=== PATIENT | female | born 1970 | race Caucasian/White ===

== ENCOUNTER 2016-10-19 03:06 | Observation (INO) | payer OTHER ==
[~2016-10-19] VITALS: Ht 165.1 cm; Wt 166.7 kg
--- NOTE | 2016-10-19 06:48 | DIAGNOSTIC IMAGING REPORT ---
PROCEDURE: XR CHEST 1 VIEW INDICATION: RECENT DX OF PE AT PROV TECHNIQUE: Portable AP view 03:31 a.m. COMPARISON: Chest x-ray 07/20/2015 FINDINGS: Lungs are clear. Heart and mediastinum are normal. Thorax is normal. No significant interval change. IMPRESSION: 1. Negative chest.
--- NOTE | 2016-10-19 06:54 | ED CLINICAL REPORT ---
Clinical Report - Physicians/Mid Levels [facility] [address] [place] [address] 10/19/2016 3:08 Patient: CORI SU Arrived- By private vehicle. Historian- patient. HISTORY OF PRESENT ILLNESS Chief Complaint: DYSPNEA. This started past several days and is still present (staying the same). It was gradual in onset and has been constant but is not gone now. The dyspnea is described as mild and is worsened by exertion, is improved by rest, is improved with oxygen and is improved with sitting upright. The patient has had chest discomfort, calf pain and foot swelling. (the patient reports that she had recently been admitted to [place] and diagnosed with heart failure, pulmonary embolism,and hypertension. Patient states that she has been getting Lovenox shots. Patient also reports having bilateral ear pain. Patient states that she was to get eardrops however the hospital no longer carried the eardrops that was prescribed. The patient states that she had left AGAINST MEDICAL ADVICE because " eye was in the basement and it smelled like mold. I felt out a cage dog. "patient reports that she which she describes as a CT scan of her chest, ultrasound of the legs, and echocardiogram. Patient states that she was also getting nitroglycerin and Lasix. Patient reports that the nitroglycerin causes her to have a headache. Patient states that she's been taking hydrocodone for pain. Patient reports losing 10 pounds of "water weight. "Patient reports no improvement with symptoms during admission.). Similar symptoms previously: None. Recent medical care: The patient was seen recently and hospitalized. REVIEW OF SYSTEMS No difficulty with urination or skin rash. All systems otherwise negative, except as recorded above. PAST HISTORY See nurses notes. Pulmonary embolism. SOCIAL HISTORY Never smoker. No alcohol use or drug use. No recent travel. Is a local resident. FAMILY HISTORY (father with history of "blood clots in the chest and legs. "). ADDITIONAL NOTES The nursing notes have been reviewed. PHYSICAL EXAM Vital Signs: 10/19/2016 03:12 BP: 151/119. HR: 85. RR: 18. O2 saturation: 80%. Temp: 98.3 F. Blood pressure normal. Oxygen saturation normal. Appearance: Alert. Patient in mild distress. (above-average BMI). Eyes: Pupils equal, round and reactive to light. Eyes normal inspection. ENT: Ears normal. Nose normal. Pharynx normal. Uvula midline. Neck: Normal inspection. No jugular venous distention. Neck supple. CVS: Normal heart rate and rhythm. Heart sounds normal. Pulses normal. Respiratory: No respiratory distress. Breath sounds normal. No wheezes, stridor, rales or rhonchi. Abdomen: Soft and nontender. No organomegaly. Back: Normal inspection. Skin: Skin warm and dry. Normal skin color. No rash. Normal skin turgor. Extremities: Extremities exhibit normal ROM. No lower extremity edema. Neuro: Oriented X 3. No motor deficit. LABS, X-RAYS, AND EKG EKG: No acute process. No acute ischemia. Normal EKG. Normal sinus rhythm. Rate: 79. Normal P waves. Normal NATHAN. Normal QRS complex. Normal axis. Normal ST and T waves, QT and QTc. The study has been interpreted contemporaneously by me. The study has been independently viewed by me. The EKG appears to be a good tracing. Chest X-ray: Mild congestive heart failure present. No pleural effusion. Vascular congestion present. Laboratory Tests: CBC w Diff: (NENA: 10/20/2016 05:10) ( MsgRcvd 10/20/2016 05:27) Final results Test Result Flag Units (Reference) WHITE BLOOD COUNT 8.2 K/uL (4.5-11.5) RED BLOOD COUNT 4.51 M/uL (4.00-5.20) HEMOGLOBIN 13.1 gm/dL (12.0-16.0) HEMATOCRIT 39.5 % (36.0-46.0) MEAN CELL VOLUME 88 fL (80-100) MEAN CORPUSCULAR HGB 29 pg (26-34) MEAN CORPUSCULAR HGB CONC 33 g/dL (31-37) RED CELL DISTRIBUTION WIDTH 14.5 % (11.6-14.8) PLATELET COUNT 191 K/uL (150-400) NEUTROPHIL % 72.0 % (50-75) LYMPH % 19.7 L % (25-40) MONO % 4.2 % (3-14) EOSINOPHIL % 3.0 % (0-4) BASOPHIL % 1.1 % (0-2) CMP: (NENA: 10/20/2016 05:10) ( [facility] 10/20/2016 05:42) Final results Test Result Flag Units (Reference) GLUCOSE 189 H mg/dL (70-110) BUN 20 H mg/dL (7-18) CREATININE 1.1 mg/dL (0.6-1.3) Estimated GFR 56.59 mL/min Estimated GFR- >60 mL/min Note: Persistent reduction over 3 months in eGFR<60 mL/min/1.73 m2 defines CKD. Patients with eGFR values>=60 mL/min/1.73 m2 may also have CKD if evidence ofpersistent proteinuria. Additional information may be foundat www.kidney.org. SODIUM 143 mmol/L (136-145) POTASSIUM 3.7 mmol/L (3.5-5.1) CHLORIDE 99 mmol/L (98-107) CARBON DIOXIDE 37 H mmol/L (21-32) CALCIUM 8.7 mg/dL (8.5-10.1) TOTAL PROTEIN 7.3 g/dL (6.4-8.2) ALBUMIN 3.1 L g/dL (3.3-5.0) BILIRUBIN, TOTAL 0.4 mg/dL (0.0-1.0) ALKALINE PHOSPHATASE 79 U/L (46-116) AST (SGOT) 24 U/L (15-37) ALT (SGPT) 28 U/L (12-78) MAGNESIUM 1.8 mg/dL (1.8-2.4) UA-Culture if indicated: (NENA: 10/19/2016 05:24) ( [facility]) Final results Test Result Flag Units (Reference) URINE COLOR YELLOW URINE APPEARANCE CLEAR URINE GLUCOSE NEGATIVE (NEGATIVE) URINE BILIRUBIN NEGATIVE (NEGATIVE) URINE KETONE NEGATIVE (NEGATIVE) URINE SPECIFIC GRAVITY >= 1.030 (1.010-1.030) URINE PH 5.5 (5.0-8.0) URINE PROTEIN NEGATIVE (NEGATIVE) URINE UROBILINOGEN 0.2 EU/dL (0.2-1.0) URINE NITRITE NEGATIVE (NEGATIVE) URINE BLOOD TRACE-LYSED (NEGATIVE) URINE LEUK ESTERASE NEGATIVE (NEGATIVE) URINE RBC 1-3 rbc/hpf (0-1) URINE WBC 0-1 wbc/hpf (0-1) URINE EPITHELIAL CELLS 0-1 EPI/hpf (0-5) URINE BACTERIA NONE SEEN (NONE SEEN) URINE COMMENT CULT NOT INDICATED URINE CULTURES ARE SET-UP BASED ON THE FOLLOWING CRITERIA:POSITIVE NITRITEPOSITIVE LEUKOCYTE ESTERASEGREATER THAN 10 WHITE BLOOD CELLSMODERATE (2+) OR GREATER BACTERIA CBC w Diff: (NENA: 10/19/2016 03:45) ( MsgRcvd 10/19/2016 03:54) Final results Test Result Flag Units (Reference) WHITE BLOOD COUNT 7.9 K/uL (4.5-11.5) RED BLOOD COUNT 4.58 M/uL (4.00-5.20) HEMOGLOBIN 13.1 gm/dL (12.0-16.0) HEMATOCRIT 40.4 % (36.0-46.0) MEAN CELL VOLUME 88 fL (80-100) MEAN CORPUSCULAR HGB 29 pg (26-34) MEAN CORPUSCULAR HGB CONC 33 g/dL (31-37) RED CELL DISTRIBUTION WIDTH 14.3 % (11.6-14.8) PLATELET COUNT 216 K/uL (150-400) NEUTROPHIL % 70.1 % (50-75) LYMPH % 21.9 L % (25-40) MONO % 4.7 % (3-14) EOSINOPHIL % 2.8 % (0-4) BASOPHIL % 0.5 % (0-2) PT with INR: (NENA: 10/19/2016 03:45) ( MsgRcvd 10/19/2016 04:02) Final results Test Result Flag Units (Reference) INR 1.1 (0.8-1.2) Low Intensity Therapy: INR 1.5-2.0 PT range 18.5-23.1Mod.Intensity Therapy: INR 2.0-3.0 PT range 23.1-31.5High Intensity Therapy: INR 2.5-3.5 PT range 27.4-35.5High Intensity Therapy 2: INR 3.0-4.0 PT range 31.5-39.3 APTT 27 SECONDS (24-34) Troponin-I: (NENA: 10/19/2016 06:00) ( [facility] 10/19/2016 06:23) Final results Test Result Flag Units (Reference) TROPONIN I 0.08 ng/mL (0.00-1.5) TROPONIN REFERENCE RANGE:<0.1 NEGATIVE0.1-1.5 INDETERMINANT>1.5 POSITIVE BNP: (NENA: 10/19/2016 03:45) ( [facility] 10/19/2016 04:10) Final results Test Result Flag Units (Reference) B-TYPE NATRIURETIC PEPTIDE 67.6 pg/ml (5-100) Troponin-I: (NENA: 10/19/2016 03:45) ( [facility] 10/19/2016 04:16) Final results Test Result Flag Units (Reference) TROPONIN I 0.08 ng/mL (0.00-1.5) TROPONIN REFERENCE RANGE:<0.1 NEGATIVE0.1-1.5 INDETERMINANT>1.5 POSITIVE CMP: (NENA: 10/19/2016 03:45) ( [facility] 10/19/2016 04:09) Final results Test Result Flag Units (Reference) GLUCOSE 211 H mg/dL (70-110) BUN 17 mg/dL (7-18) CREATININE 1.2 mg/dL (0.6-1.3) Estimated GFR 51.18 mL/min Estimated GFR- >60 mL/min Note: Persistent reduction over 3 months in eGFR<60 mL/min/1.73 m2 defines CKD. Patients with eGFR values>=60 mL/min/1.73 m2 may also have CKD if evidence ofpersistent proteinuria. Additional information may be foundat www.kidney.org. SODIUM 141 mmol/L (136-145) POTASSIUM 3.9 mmol/L (3.5-5.1) CHLORIDE 102 mmol/L (98-107) CARBON DIOXIDE 34 H mmol/L (21-32) CALCIUM 8.8 mg/dL (8.5-10.1) TOTAL PROTEIN 7.2 g/dL (6.4-8.2) ALBUMIN 3.0 L g/dL (3.3-5.0) BILIRUBIN, TOTAL 0.4 mg/dL (0.0-1.0) ALKALINE PHOSPHATASE 80 U/L (46-116) AST (SGOT) 20 U/L (15-37) ALT (SGPT) 29 U/L (12-78) MRSA Screen: (NENA: 10/19/2016 09:45) ( MsgRcvd 10/22/2016 06:26) Final results SPECIMEN DESCRIPTION: NASAL Is patient on antibiotics? N Test Result Flag Units (Reference) MRSA SCREEN DATE: 10/22/16 GROWTH: LIGHT GROWTH MRSA ISOLATED?: NO MRSA ISOLATED MSSA ISOLATED?: MSSA (Methacilin Sensitive Staph aureus ISOLATED) * MRSA SCREEN ONLY . Pulse Oximetry: 10/19/2016 09:15 O2 saturation: 100%. Interpretation: hypoxemia. PROGRESS AND PROCEDURES Course of Care: The patient is a pleasant 46 female with reported history of pulmonary embolism and congestive heart failure presented for evaluation shortness of breath. The patient was hypoxicat 80% on room air upon arrival here in the emergency department. The patient has a somewhat difficult examination due to body habitus. The patient will be evaluated for worsening of her pulmonary embolism with chest x-ray as well as laboratory studies including troponin. We will also request records from [place] as the patient does not appear to be a reliable historian at this time. The patient's workup for medical records does not show patient had a pulmonary embolism at any point in time. The CT scan results from [place] indicate that the patient had a CT scan that does not show any signs of major blood clots however it does mention a possibility of small peripheral pulmonary embolisms. The patient has not been started on pulmonary embolism level of anticoagulation according to the records but has been started on DVT prophylaxis due to the admission. I had also spoken to patient in regards to why she had left [place]. The patient states that she was in a area of the hospital that "smelled like mold" and also states that she felt like she was being caged up like a dog. I had called over to the hospitalist that was taking care of the patient and they had been aware of the patient's concern of the situation that she was in. They had stated the patient's room was being changed at the moment however they were trying to figure out an appropriate place for her. The first option that they had had cannot accommodate the patient's significant other overnight as the room was shared. The patient also was confirmed not to have evidence of pulmonary embolism. The diagnosis she was given in the emergency department and at the hospitalization was noted to be flash pulmonary edema. Patient's workup here in the emergency department is otherwise unremarkable. delta troponin noted to be normal. Do not fill patient's shortness of breath is due to acute myocardial infarction at this time. Troponins noted at [facility] also noted to be normal 3. Patient does have hypoxia which is likely due to the congestive heart failure and fluid overload however patient does not have significant signs of fluid overload at this time. Lasix has been given. Because of the patient's negative workup for pulmonary embolism, do not feel repeat CT scan would benefit the patient and only expose the patient to excessive radiation and contrast. Had spoken to our hospitalist who will accept the patient into the intensive care unit for further diuresis and monitoring of her respiratory function. The patient was placed on noninvasive positive pressure ventilation which improved her symptoms. The patient was ambulatory down in the emergency department without significant distress however because of the patient's history, and still reported respiratory distress, feel the patient should be admitted to the intensive care unit. Patient was updated on the diagnosis and workup here in the emergency department and updated on the plan of care. The patient was agreeable to the treatment and plan. Patient was admitted without Complication. Critical care performed (60 minutes). Time is exclusive of separately billable procedures. Time includes: direct patient care, patient reassessment, coordination of patient care, interpretation of data (laboratory data, pulse oximetry and chest xrays), review of patient's medical records, medical consultation, family consultation regarding treatment decisions and documentation of patient care. Disposition: Admitted to the Critical Care Unit. CLINICAL IMPRESSION CHF acute exacerbation acute hypoxia acute respiratory failure. (Electronically signed by Joel Bianchi Dr. 10/22/2016 18:34)
--- NOTE | 2016-10-19 06:54 | ED ORDER SUMMARY ---
..... Patient: CORI SU OrderSheet [facility] VisitID: [id number] [place] [address] 46y, F Registration Date/Time: 10/19/2016 ORDER SHEET Weight: 167.8 kg (stated) Allergies: Benadryl, Demerol, Morphine Sulfate GENERAL ORDERS: Chest 1V Urgent (03:21 10/19/2016 Jaron Tinajero) (Ack 3:29 CHagerty ER Metallurgical Tester) (3:42 GUnger) Public Employment Mediator (Continuous) (recent dx of PE at [facility]) (03:22 10/19/2016 Jaron Tinajero) (Ack 4:26 DBeyer R.NCarlos) CBC w Diff Urgent (03:10/19/2016 Jaron Tinajero) (Ack 3:29 CHagerty ER Metallurgical Tester) (4:39 CHagerty ER Metallurgical Tester) CMP Urgent (03:22 10/19/2016 Jaron Tinajero) (Ack 3:29 CHagerty ER Metallurgical Tester) (4:39 CHagerty ER Metallurgical Tester) UA-Culture if indicated Urgent (03:22 10/19/2016 Jaron Tinajero) (Ack 3:29 CHagerty ER Metallurgical Tester) PT with INR Urgent (03:10/19/2016 Jaron Tinajero) (Ack 3:29 CHagerty ER Metallurgical Tester) (4:39 CHagerty ER Metallurgical Tester) PTT Urgent (03:22 10/19/2016 Jaron Tinajero) (Ack 3:29 CHagerty ER Metallurgical Tester) (4:39 CHagerty ER Metallurgical Tester) Pulse oximeter (03:22 10/19/2016 Jaron Tinajero) (3:51 RCollier R.N.) Oxygen (titrate for sats > 92%) (NC, per Simple Mask) (03:40 10/19/2016 Jaron Tinajero) (3:51 RCollier R.N.) Troponin-I Urgent (03:41 10/19/2016 Jaron Tinajero) (Ack 3:52 CHagerty ER Metallurgical Tester) (4:39 CHagerty ER Metallurgical Tester) BNP Urgent (03:41 10/19/2016 Jaron Tinajero) (Ack 3:52 CHagerty ER Metallurgical Tester) (4:39 CHagerty ER Metallurgical Tester) EKG - ER Stat (04:02 10/19/2016 Jaron Tinajero) (Ack 4:08 CHagerty ER Metallurgical Tester) (4:39 CHagerty ER Metallurgical Tester) - (Consult Prov Hospitalist or covering doc for Isiah Henry) (04:03 10/19/2016 aJron Tinajero) (Ack 4:08 CHagerty ER Metallurgical Tester) (4:39 CHagerty ER Metallurgical Tester) Troponin-I (draw 2 hours after first blood draw) Urgent (04:59 10/19/2016 Jaron Tinajero) (Ack 5:08 CHagerty ER Metallurgical Tester) (6:01 CHagerty ER Metallurgical Tester) Non-Invasive Ventilator Start Stat (06:50 10/19/2016 Jaron Tinajero) (Ack 6:54 CHagerty ER Metallurgical Tester) MEDICATION ORDERS: Hydrocodone-APAP PO 5/325 mg (NOW, HIGH ALERT MEDICATION) (03:40 10/19/2016 Jaron Tinajero) (4:00 DBeyer R.N.) Motrin PO 600 mg (NOW) (08:52 10/19/2016 Jaron Tinajero) (9:04 JSimbeck R.N.) IV FLUIDS: IV Saline Lock (03:22 10/19/2016 Jaron Tinajero) (3:55 DBeyer R.N.) IV Saline Lock (03:41 10/19/2016 Jaron Tinajero) (Cancelled: Duplicate Order4:26 DBeyer R.N.) Lasix IV 40 mg (NOW) (06:51 10/19/2016 Jaron Tinajero) (7:06 LSullivan R.N.) ORDER SHEET NOTES: [Electronically signed by Chris Griffin R.N. (08:22 10/20/2016)] [Electronically signed by Joel Bianchi Dr. (18:34 10/22/2016)] [Electronically locked/signed by Chris Griffin R.N. (08:22 10/20/2016)]
--- NOTE | 2016-10-19 06:54 | ED NURSING NOTES ---
Clinical Report - Nurses [facility] [address] [place] [address] 10/19/2016 3:08 [id number] Triage time 03:13 Oct 19 2016. Acuity: LEVEL 3. Chief Complaint: (hypoxia,). --03:20 Fabiano Mansfield R.N. 03:12 10/19/16. BP: 151/119. HR: 85. RR: 18. O2 saturation: 80%. Temp: 98.3 F. Pain level now 07/03. --03:20 Fabiano Mansfield R.N. Weight: 167.8 kg stated. Height/Length: 65 inches Per Patient. BMI: 61.6. --03:17 Fabiano Mansfield R.N. Medications Lisinopril Oral. MetFORMIN HCl Oral 500 mg, 3x a day. Metoprolol Tartrate Oral. [place] Oral. --03:15 Fabiano Mansfield R.N. Lasix Oral. --03:16 Fabiano Mansfield R.N. Allergies Benadryl. Demerol. Morphine Sulfate. --03:15 Fabiano Mansfield R.N. History Arrived by private vehicle. Historian: patient. ( Pt arrives after walking out of [facility] she was admitted for HR , hypoxia, and PE. Pt states" I felt like a dog in cage." Pt is hypoxic on RA 80% increased to 95% on 3L NC. Was admitted on sunday at [place]). SOCIAL HX: Never smoker. No alcohol use or drug use. FALL RISK ASSESSMENT: Fall risk assessment completed. Fall interventions initiated. Call light in reach of patient; weight. --03:20 Fabiano Mansfield R.N. PROBLEMS: Costochondritis. Diabetes Mellitus. Hypertension. --03:18 Fabiano Mansfield R.N. Heart Failure. --03:20 Fabiano Mansfield R.N. ADDITIONAL SURGERIES: Abdominal Hernia Repair. Ankle. Appendectomy. Cholecystectomy. Colon biopsy. . Kidney stents. Lithotripsy. --03:18 Fabiano Mansfield R.N. Interventions ID band on patient. To treatment room. --03:20 Fabiano Mansfield R.N. PHYSICAL ASSESSMENT GENERAL / NEURO / PSYCH: Alert. Oriented X 4. Appears in no acute distress. HEENT: Pupils equal, round and reactive to light. No facial asymmetry noted. RESPIRATORY: Respirations not labored. Decreased breath sounds diffusely over both lungs. Wheezes in the left upper lung anteriorly. GI / : Abdomen soft and nontender. SKIN: Skin is warm and dry. --03:25 Fabiano Mansfield R.N. NURSING PROGRESS NOTES Oxygen administered. Pulse oximeter placed on patient. Patient gowned. Two patient identifiers checked. Call light placed in reach of patient. Side rails up x 1. Bed placed in lowest position. --03:25 Fabiano Mansfield R.N. 03:55 10/19/2016 Site #1 started via IV in the left forearm with an 22g angiocath; four attempts. Blood drawn: rainbow set. Labeled in the presence of the patient and sent to the lab. Saline lock flushed. --03:55 Fabiano Mansfield R.N. 04:00 10/19/2016 Hydrocodone-APAP (Hydrocodone-Acetaminophen) PO 5/325 mg Tablets 1 tab given. Allergies verified, confirmed 5 rights and sedative warning given to the patient. --04:00 Fabiano Mansfield R.N. 04:27 10/19/16. BP: 146/76. HR: 76. O2 saturation: 98%. --04:28 Fabiano Mansfield R.N. EKG time: (0418 AM). EKG was ordered, performed by a tech and shown to the ED physician. --04:31 Shira Valentin 04:43 10/19/16. BP: 155/91. HR: 93. O2 saturation: 96%. --04:44 Fabiano Mansfield R.N. ( Pt resting in bed no needs at this time.). --04:44 Fabiano Mansfield R.N. ( Pt ambulated to bathroom with 02 1 person). --05:37 Fabiano Mansfield R.N. 05:35 10/19/16. HR: 74. O2 saturation: 95%. --05:37 Fabiano Mansfield R.N. 07:06 10/19/2016 Lasix IVP 40 mg given over 2 minute(s) via site #1. IV patency established. IV site checked: no pain, redness, or swelling. IV flushed thoroughly pre- and post-medication administration. IVP given by RN. --07:06 Jessi Goldman R.N. 07:10 10/19/16. HR: 66. RR: 16. O2 saturation: 100%. Pain level now 0/10. --07:10 Fabiano Mansfield R.N. ( report to becky). --07:10 Fabiano Mansfield R.N. 07:12 10/19/16. BP: 143/65. --07:12 Fabiano Mansfield R.N. 09:02 10/19/2016 Motrin PO Tablets 600 mg given. Allergies verified and confirmed 5 rights. --09:04 Chrsi Griffin R.N. DISPOSITION / DISCHARGE 09:25 10/19/16. Report was given to a nurse via a phone call. Report included patient's care, treatment, medications, reviewed medication reconcilliation, and condition (including any recent changes or anticipated changes). All questions were answered. Report was acknowledged. (CCU). --09:26 Chris Griffin R.N. 09:30 10/19/2016 Site #[address] upon admission; patent, no pain and no signs of infection or infiltration; flushes easily. --09:54 Chris Griffin R.N. 09:55 10/19/16. Departure time: 929. Condition at departure: improved and stable. Admitted to the Critical Care Unit. Transported via stretcher by nurse with monitor, IV and O2 (BiPap). --09:56 Chris Griffin R.N. 09:15 10/19/16. BP: 160/66. HR: 79. RR: 20. O2 saturation: 100%. O2 started via ventilator. Temp: 98.3 F (oral). Pain level now: 0/10. Additional comments: BiPap. --09:56 Chris Griffin R.N. Locked/Released at 10/20/2016 8:22 by Chris Griffin R.N.
--- NOTE | 2016-10-19 06:54 | ED ORDER SUMMARY ---
..... Patient: CORI SU OrderSheet [facility] VisitID: [id number] [place] [address] 46y, F Registration Date/Time: 10/19/2016 ORDER SHEET Weight: 167.8 kg (stated) Allergies: Benadryl, Demerol, Morphine Sulfate GENERAL ORDERS: Chest 1V Urgent (03:21 10/19/2016 Jaron Tinajero) (Ack 3:29 CHagerty ER Greeter) (3:42 GUnger) Obstetrics Gynecology Md (Continuous) (recent dx of PE at [facility]) (03:22 10/19/2016 Jaron Tinajero) (Ack 4:26 DBeyer R.NCarlos) CBC w Diff Urgent (03:10/19/2016 Jaron Tinajero) (Ack 3:29 CHagerty ER Greeter) (4:39 CHagerty ER Greeter) CMP Urgent (03:22 10/19/2016 Jaron Tinajero) (Ack 3:29 CHagerty ER Greeter) (4:39 CHagerty ER Greeter) UA-Culture if indicated Urgent (03:22 10/19/2016 Jaron Tinajero) (Ack 3:29 CHagerty ER Greeter) PT with INR Urgent (03:10/19/2016 Jaron Tinajero) (Ack 3:29 CHagerty ER Greeter) (4:39 CHagerty ER Greeter) PTT Urgent (03:22 10/19/2016 Jaron Tinajero) (Ack 3:29 CHagerty ER Greeter) (4:39 CHagerty ER Greeter) Pulse oximeter (03:22 10/19/2016 Jaron Tinajero) (3:51 RCollier R.N.) Oxygen (titrate for sats > 92%) (NC, per Simple Mask) (03:40 10/19/2016 Jaron Tinajero) (3:51 RCollier R.N.) Troponin-I Urgent (03:41 10/19/2016 Jaron Tinajero) (Ack 3:52 CHagerty ER Greeter) (4:39 CHagerty ER Greeter) BNP Urgent (03:41 10/19/2016 Jaron Tinajero) (Ack 3:52 CHagerty ER Greeter) (4:39 CHagerty ER Greeter) EKG - ER Stat (04:02 10/19/2016 Jaron Tinajero) (Ack 4:08 CHagerty ER Greeter) (4:39 CHagerty ER Greeter) - (Consult Prov Hospitalist or covering doc for Isiah Henry) (04:03 10/19/2016 Jaron Tinajero) (Ack 4:08 CHagerty ER Greeter) (4:39 CHagerty ER Greeter) Troponin-I (draw 2 hours after first blood draw) Urgent (04:59 10/19/2016 Jaron Tinajero) (Ack 5:08 CHagerty ER Greeter) (6:01 CHagerty ER Greeter) Non-Invasive Ventilator Start Stat (06:50 10/19/2016 Jaron Tinajero) (Ack 6:54 CHagerty ER Greeter) MEDICATION ORDERS: Hydrocodone-APAP PO 5/325 mg (NOW, HIGH ALERT MEDICATION) (03:40 10/19/2016 Jaron Tinajero) (4:00 DBeyer R.N.) Motrin PO 600 mg (NOW) (08:52 10/19/2016 Jaron Tinajero) (9:04 JSimbeck R.N.) IV FLUIDS: IV Saline Lock (03:22 10/19/2016 Jaron Tinajero) (3:55 DBeyer R.N.) IV Saline Lock (03:41 10/19/2016 Jaron Tinajero) (Cancelled: Duplicate Order4:26 DBeyer R.N.) Lasix IV 40 mg (NOW) (06:51 10/19/2016 Jaron Tinajero) (7:06 LSullivan R.N.) ORDER SHEET NOTES: [Electronically signed by Chris Griffin R.N. (08:22 10/20/2016)] [Electronically signed by Joel Bianchi Dr. (18:34 10/22/2016)] [Electronically locked/signed by Chris Griffin R.N. (08:22 10/20/2016)]
--- NOTE | 2016-10-19 06:54 | ED NURSING NOTES ---
Clinical Report - Nurses [facility] [address] [place] [address] 10/19/2016 3:08 [id number] Triage time 03:13 Oct 19 2016. Acuity: LEVEL 3. Chief Complaint: (hypoxia,). --03:20 Fabiano Mansfield R.N. 03:12 10/19/16. BP: 151/119. HR: 85. RR: 18. O2 saturation: 80%. Temp: 98.3 F. Pain level now 07/03. --03:20 Fabiano Mansfield R.N. Weight: 167.8 kg stated. Height/Length: 65 inches Per Patient. BMI: 61.6. --03:17 Fabiano Mansfield R.N. Medications Lisinopril Oral. MetFORMIN HCl Oral 500 mg, 3x a day. Metoprolol Tartrate Oral. [place] Oral. --03:15 Fabiano Mansfield R.N. Lasix Oral. --03:16 Fabiano Mansfield R.N. Allergies Benadryl. Demerol. Morphine Sulfate. --03:15 Fabiano Mansfield R.N. History Arrived by private vehicle. Historian: patient. ( Pt arrives after walking out of [facility] she was admitted for HR , hypoxia, and PE. Pt states" I felt like a dog in cage." Pt is hypoxic on RA 80% increased to 95% on 3L NC. Was admitted on sunday at [facility]). SOCIAL HX: Never smoker. No alcohol use or drug use. FALL RISK ASSESSMENT: Fall risk assessment completed. Fall interventions initiated. Call light in reach of patient; weight. --03:20 Fabiano Mansfield R.N. PROBLEMS: Costochondritis. Diabetes Mellitus. Hypertension. --03:18 Fabiano Mansfield R.N. Heart Failure. --03:20 Fabiano Mansfield R.N. ADDITIONAL SURGERIES: Abdominal Hernia Repair. Ankle. Appendectomy. Cholecystectomy. Colon biopsy. . Kidney stents. Lithotripsy. --03:18 Fabiano Mansfield R.N. Interventions ID band on patient. To treatment room. --03:20 Fabiano Mansfield R.N. PHYSICAL ASSESSMENT GENERAL / NEURO / PSYCH: Alert. Oriented X 4. Appears in no acute distress. HEENT: Pupils equal, round and reactive to light. No facial asymmetry noted. RESPIRATORY: Respirations not labored. Decreased breath sounds diffusely over both lungs. Wheezes in the left upper lung anteriorly. GI / : Abdomen soft and nontender. SKIN: Skin is warm and dry. --03:25 Fabiano Mansfield R.N. NURSING PROGRESS NOTES Oxygen administered. Pulse oximeter placed on patient. Patient gowned. Two patient identifiers checked. Call light placed in reach of patient. Side rails up x 1. Bed placed in lowest position. --03:25 Fabiano Mansfield R.N. 03:55 10/19/2016 Site #1 started via IV in the left forearm with an 22g angiocath; four attempts. Blood drawn: rainbow set. Labeled in the presence of the patient and sent to the lab. Saline lock flushed. --03:55 Fabiano Mansfield R.N. 04:00 10/19/2016 Hydrocodone-APAP (Hydrocodone-Acetaminophen) PO 5/325 mg Tablets 1 tab given. Allergies verified, confirmed 5 rights and sedative warning given to the patient. --04:00 Fabiano Mansfield R.N. 04:27 10/19/16. BP: 146/76. HR: 76. O2 saturation: 98%. --04:28 Fabiano Mansfield R.N. EKG time: (0418 AM). EKG was ordered, performed by a tech and shown to the ED physician. --04:31 Shira Valentin 04:43 10/19/16. BP: 155/91. HR: 93. O2 saturation: 96%. --04:44 Fabiano Mansfield R.N. ( Pt resting in bed no needs at this time.). --04:44 Fabiano Mansfield R.N. ( Pt ambulated to bathroom with 02 1 person). --05:37 Fabiano Mansfield R.N. 05:35 10/19/16. HR: 74. O2 saturation: 95%. --05:37 Fabiano Mansfield R.N. 07:06 10/19/2016 Lasix IVP 40 mg given over 2 minute(s) via site #1. IV patency established. IV site checked: no pain, redness, or swelling. IV flushed thoroughly pre- and post-medication administration. IVP given by RN. --07:06 Jessi Goldman R.N. 07:10 10/19/16. HR: 66. RR: 16. O2 saturation: 100%. Pain level now 0/10. --07:10 Fabiano Mansfield R.N. ( report to becky). --07:10 Fabiano Mansfield R.N. 07:12 10/19/16. BP: 143/65. --07:12 Fabiano Mansfield R.N. 09:02 10/19/2016 Motrin PO Tablets 600 mg given. Allergies verified and confirmed 5 rights. --09:04 Chris Griffin R.N. DISPOSITION / DISCHARGE 09:25 10/19/16. Report was given to a nurse via a phone call. Report included patient's care, treatment, medications, reviewed medication reconcilliation, and condition (including any recent changes or anticipated changes). All questions were answered. Report was acknowledged. (CCU). --09:26 Chrsi Griffin R.N. 09:30 10/19/2016 Site #[address] upon admission; patent, no pain and no signs of infection or infiltration; flushes easily. --09:54 Chris Griffin R.N. 09:55 10/19/16. Departure time: 929. Condition at departure: improved and stable. Admitted to the Critical Care Unit. Transported via stretcher by nurse with monitor, IV and O2 (BiPap). --09:56 Chris Griffin R.N. 09:15 10/19/16. BP: 160/66. HR: 79. RR: 20. O2 saturation: 100%. O2 started via ventilator. Temp: 98.3 F (oral). Pain level now: 0/10. Additional comments: BiPap. --09:56 Chris Griffin R.N. Locked/Released at 10/20/2016 8:22 by Chris Griffin R.N.
--- NOTE | 2016-10-19 09:35 | NUR ---
RECEIVED PATIENT TO FLOOR FROM ED VIA GURNEY. PATIENT AMBULATED FROM GURNEY TO BED. PATIENT MADE COMFORTABLE AND VITAL SIGNS TAKEN, WILL CONTINUE TO MONITOR PATIENT.
[2016-10-19 09:38] VITALS: BP 158/86
[2016-10-19 10:00] VITALS: BP 163/92
[2016-10-19] MEDS ORDERED: PRINIVIL10 MG PO (10:07)
[2016-10-19] MEDS ORDERED: METFORMIN HCL500 MG PO (10:08)
[2016-10-19] MEDS ORDERED: LOPRESSOR25 MG PO (10:08)
[2016-10-19] MEDS ORDERED: NORCO1 TAB PO (10:09)
--- NOTE | 2016-10-19 10:48 | History & Physical Report ---
Admission Admit Date 10/19/16 Information Source Information Source: Self, Spouse/Partner History Chief Complaint Shortness of breath History of Present Illness Patient is a 46 year old female with a pmh of hypertension and diabetes that is presenting with a few day history of shortness of breath and cough. Patient was initially at home when she had a sudden onset of shortness of breath, she was coughing continuously and started to develop a headache. Patient went to [place] where the diagnosis of flash pulmonary edema was made and patient was treated accordingly. Patient had some problem with either room or staff and left ama. Patient came to the ER to resume treatment from [place]. Patient was severely short of breath on admission and was saturating in the 80s. Patient was placed on bipap and good response to the treatment. Patient continued to do well , and was eventually transferred to the floor. Upon questioning patient felt very short of breath this morning and continued to have lower extremity swelling. Patient felt better after recieving lasix and being on the bipap. Patient History 1. Hypoxia 2. Hypertension 3. Diabetes mellitus 4. Otitis media Social History pt denies using cigarettes, alcohol or illicit drugs pt is currently homeless and lives in her car pt is not currently employed Medications and Allergies Medications Current Medications Sig/Andrews Start time Last Medication Dose Route Stop Time Status Admin Ketorolac 30 MG Q6H PRN 10/19 1830 AC Tromethamine IV Sumatriptan Succinate 6 MG BID PRN 10/19 1830 AC SC Insulin Human Lispro See Dose ACHS 10/19 1630 AC 10/19 Insts (1) SC 1639 Metformin HCl 500 MG TID 10/19 1400 AC 10/19 PO 1629 Amoxicillin 500 MG BID 10/19 1048 AC 10/19 PO 1155 Acetaminophen/ See Dose Q6H PRN 10/19 1045 AC Hydrocodone Bitart Insts (2) PO Furosemide 40 MG BID 10/19 1035 AC 10/19 IV 1155 Metoprolol Tartrate 25 MG DAILY 10/19 1034 AC 10/19 PO 1155 Lisinopril 10 MG DAILY 10/19 1033 AC 10/19 PO 1155 Enoxaparin Sodium 40 MG QAM 10/19 1030 AC 10/19 SC 1155 Ipratropium [place] 0.5 MG Q6H PRN 10/19 1030 AC IN Lorazepam 0.5 MG Q8H PRN 10/19 1030 AC PO Dose Instructions: (1)Insulin Human Lispro: LOW DOSE: ACCUCHECK AND SLIDING SCALE >>To change sliding scale DISCONTINUE this order and enter a NEW order. Thanks< (2)Acetaminophen/Hydrocodone Bitart: 1 - 2 TABLETS Allergies Coded Allergies: Diphenhydramine (06/19/07) Meperidine and Related (06/19/07) Morphine (06/19/07) TAPE - PLASTIC (10/19/16) Review of Systems Constitutional Weakness, Malaise. Denies: Fever, Chills, Sweats, Other. Eyes Denies: Pain, Vision Change, Conjunctival Inflammation, Eyelid Inflammation, Redness, Other. ENT Denies: Ear Pain, Ear Discharge, Nose Pain, Nasal Discharge, Nasal Congestion, Mouth Pain, Mouth Swelling, Throat Pain, Throat Swelling, Other. Respiratory Cough, Dry, SOB w/exertion. Denies: Wheezing, Hemoptysis, Pleuritic Pain, Sputum, Other. Cardiovascular Denies: Chest Pain, Palpitations, Orthopnea, PND, Edema, Light-headedness, Other. Gastrointestinal Denies: Nausea, Vomiting, Abdominal Pain, Diarrhea, Constipation, Melena, Hematochezia, Other. Genitourinary Denies: Dysuria, Frequency, Incontinence, Hematuria, Retention, Other. Musculoskeletal Denies: Neck Pain, Shoulder Pain, Arm Pain, Back Pain, Hand Pain, Leg Pain, Foot Pain, Other. Skin Denies: Rash, Lesions, Jaundice, Bruising, Other. Neurological Other (headaches ). Denies: Weakness, Numbness, Incoordination, Change in speech, Confusion, Seizures. Physical Exam Vital Signs / I&Os Vital Signs Date Time Temp Pulse Resp B/P Pulse O2 O2 Flow FiO2 Ox Delivery Rate 10/19 1428 97.9 68 17 120/48 96 Nasal 2.0 Cannula 10/19 1326 69 13 96 Nasal 2.0 Cannula 10/19 1100 76 18 161/86 96 Nasal 2.0 Cannula 10/19 1000 80 18 163/92 98 Nasal 2.0 Cannula 10/19 0955 2.0 10/19 0945 Nasal 2.0 Cannula 10/19 0938 98.1 78 16 158/86 95 Room Air General Appearance Alert, Oriented X3, No acute distress HEENT Normal exam, PERRLA, EOMI Lungs Clear to auscultation, Normal air movement Neck Supple, No JVD, No masses Cardiovascular Regular rate and rhythm, Normal S1 and S2, No murmurs, gallops, rubs Abdomen Soft, No tenderness, No rebound Extremities No cyanosis, No clubbing, trace edema Skin No Breakdown, No Significant Lesions Neurological Normal gait, Normal speech, Sensation intact, Strength 5/5 x4 ext's Assessment and Plan Problem List 1. Acute exacerbation of CHF (congestive heart failure) Plan - patient is morbidly obese and has shortness of breath - pt has no history of CAD or cardiac pathologies in the past - pts pbnp are wnl - echo cardiogram from [place] does not show decompensated heart failure EF 50% - pt will be diuresed - pt will be weaned off bipap - anticipate dc tomorrow 2. Hypertension Plan - c/w lisinopril and metoprolol at home dosage 3. Diabetes mellitus Plan c.w metformin and sliding scale 4. Otitis media Plan - evidence of tm erythema - will provide with oral amoxicillin
[2016-10-19 11:00] VITALS: BP 161/86
--- NOTE | 2016-10-19 12:55 | NUR ---
Patient has been resting after coming to the floor. Awakes easily for medications and assessments. Friend at bedside. Will continue to monitor patient.
[2016-10-19 14:28] VITALS: BP 120/48
--- NOTE | 2016-10-19 18:01 | NUR ---
Patient continues to be alert and oriented. Slept for awhile then has been up visiting with family on the phone. No complaints of pain, nausea or vomiting. Will continue to monitor patient.
--- NOTE | 2016-10-19 18:03 | NUR ---
Patient complained of leg cramps - notified Dr. Bond.
[2016-10-19 18:56] VITALS: BP 136/63
--- NOTE | 2016-10-19 21:05 | NUR ---
PT AND FAMILY MEMBER INFORMED OF VISITING HOURS @ 2045. PT STATED THAT NO ONE STATED WHAT THE VISITING HOURS WERE. PT STATED THAT HER BF HAS BEEN HERE ALL DAY SINCE SHE WAS ADMITTED AT 0200 AM LAST NIGHT. PT STATED " I LEFT PROV BECAUSE THEY WOULDN'T LET HIM STAY, AND THEY MOVED ME DOWN TO THE BASEMENT WHERE IS SMELLS LIKE MOLD." RN APOLOGIZED FOR THE INCONVIENCE, AND THAT VISITING HOURS ARE OVER AT 9PM. RN INFORMED SLUDGE FILTRATION OPERATOR AND SUP CAME TO TALK WITH PATIENT. PT STATED THAT SHE WILL LEAVE IF HE CAN'T STAY. PT AND SO TALKING ABOUT WHAT TO DO, UMA
--- NOTE | 2016-10-19 21:20 | NUR ---
PT'S BF LEFT FOR THE NIGHT. PT DECIDED TO STAY. WCTM.
[2016-10-19 22:27] VITALS: BP 157/61
--- NOTE | 2016-10-19 22:50 | NUR ---
PT'S O2 SAT WAS 88%-90% ON ROOM AIR. PT PLACED ON 2 LPM VIA OXYMASK O2 SAT INCREASED TO 95%. PT TOOK OFF OXYGEN AND STATED, " THE OXYGEN GIVES ME A HEADACHE, I CANT WEAR IT." RN INFORMED PATIENT THAT HER OXYGEN LEVEL IS LOW AND THAT SHE NEEDS TO WEAR O2, RN CAN ADD THE WATER TO HELP WITH THE DRYNESS. PT RESFUSED. PT STATED " I TRIED THAT DOWN STAIRS, IT DOESN'T WORK. CAN YOU PUT ME ON THAT CPAP MACHINE." RN EDUCATED PATIENT ON THE USE OF THE MACHINES, AND THE NEED FOR OXYGEN. RT CALLED TO TALK WITH PATIENT. RT AND RN TALKED WITH PATIENT ABOUT HER WEARING OXYGEN. PT AGREED TO WEAR THE O2 FOR 20 MINS AND RN AND PATIENT WILL REASSESS HER HEADACHE AND O2 LEVELS. UMA.
--- NOTE | 2016-10-20 00:37 | NUR ---
PT'S O2 SAT DECREASED TO 84% WHEN ASLEEP. RN ENTERED ROOM, AND PT HAD TAKEN OFF OXYGEN. RN WOKE UP PT AND REPLACED THE OXYGEN. PT STATED, " I TOOK IT OFF BECAUSE MY HEADACHE CAME BACK; NOW ITS GONE." RN INFORMED PT THAT SHE HAD BEEN ASLEEP FOR SOMETIME WITH THE OXYGEN ON AND PT STATED, " MY PAIN MEDS KICKED IN." RN INFORMED PATIETN THAT SHE NEEDS TO KEEP THE OXYGEN ON, O2 TURNED DOWN TO 2LPM VIA NC. WHILE RN IN ROOM ADJUSTING OXYGEN, PT SNORING, EYES CLOSED. BED IN LOWEST POSITION, CALL LIGHT IN REACH, WCTM.
[2016-10-20 03:13] VITALS: BP 185/99
[2016-10-20 03:56] VITALS: BP 181/87
--- NOTE | 2016-10-20 05:17 | NUR ---
PT'S O2SAT 79% ON ROOM AIR WHILE ASLEEP. RN WOKE PT UP AND INFORMED HER THAT HER OXYGEN LEVEL IS IN 79%, AND SHE NEEDS TO HAVE HER O2 ON. PT REFUSED AND STATED SHE HAS A HEADACHE. RN INFORMED PT THAT SHE CAN HAVE TORADOL AND OXYGEN NOW, IMPLEMENTATION COORDINATOR WILL CALL MD AND THE MD CAN DECIDE WHAT TO DO ABOUT THE HEADACHE AND LOW OXYGEN LEVELS. PT STATED SHE JUST WANTED TO TORADOL. RN STATED TO THE PATIENT THAT SHE NEEDS TO PUT THE OXYGEN ON, PT AGREED TO PUT ON THE OXYGEN ALONG WITH TORADOL. PT DECLINED A PARTIAL BED BATH AT THIS TIME. RN INFORMED PATIENT THAT SHE WILL HAVE A BEDBATH AND OR SHOWER IN THE MORNING, DUE TO REDNESS IN THE GROIN AREA, AND URINE SMELL. PT AGREED TO A BEDBATH LATER THIS AM. FRESH WATER GIVEN. BED IN LOWEST POSITION, CALL LIGHT IN REACH, WCTM.
[2016-10-20 07:19] VITALS: BP 166/67
--- NOTE | 2016-10-20 10:52 | NUR ---
PT HAS BEEN SLEEPING MUCH OF THE MORNING, WAKING BRIEFLY FROM TIME TO TIME. WHEN SHE WAS AWAKE SHE WAS COMPLAINING OF A HEADACHE, IMITREX IS ORDERED SO I OFFERED IT TO HER AND SHE REFUSED. SHE IS REFUSING HER O2 WELL. HER SAO2 IS IN THE LOW TO MID 90s, BUT WHEN SHE SLEEPS AND HAS APNEIC TIMES HER SAO2 DROPS INTO THE 70s. I WENT INTO HER ROOM TO TALK TO HER ABOUT HER LOW SATURATION WHILE SLEEPING AND HER S.O. WAS SITTING AT THE BEDSIDE AND TOOK OVER THE CONVERSATION SAYING THAT HE IS WHATCHING THE SATURATIONS AND IS AWARE OF IT. I EXPLAINED THAT IT WOULD BE TO HER BENEFIT TO WEAR HER OXYGEN WHILE SLEEPING BECAUSE I THINK SHE IS HAVE SOME SLEEP APNEA. HE SAID "OH YA,YA, SHE DOES" WHEN I ASKED IF SHE HAD A CPAP AT HOME, HE WENT ON TO SAY THAT SHE DOESN'T BECAUSE SHE LIVES IN HER CAR, NOT A HOME. HE SAID THAT WHE DOESN'T WANT TO WEAR THE O2 BECAUSE "IT DRIES HER NOSE OUT". THE HUMIDIFIER IS ALREADY ON. HE THEN WENT ON TO COMPLAIN THAT WE ARE NOT TREATING HER HEADACHE AND I INFORMED HIM THAT I HAD OFFERED HER IMITREX AND SHE HAD REFUSED IT.
--- NOTE | 2016-10-20 10:52 | NUR ---
NUTRITION ASSESSMENT: S: Pt admitted with dx/o acute exacerbation of CHF, respiratory failure, hypoxia. Pt PMH of hypoxia, HTN, diabetes, otitis media, obesity. Pt denies chew or swallow problems. Pt states food allergies to fish, cantaloupe and all green peppers-kitchen aware. O: Diet Rx: Cardiac/Consistent Carb food allergies: green peppers, cantaloupe, fish Wts: 166.7 kg Ht: 65" IBW: 50-65 kg %IBW: 255% BMI: 61 ABW: ~95 kg Est kcals: ~5921-5345 kcals per day Est pro: ~95-115 g per day Est fluids: ~per MD Meds Incl: amoxacillin, enoxaparin, lasix, low dose SSI, metformin, metoprolol, see emar for complete list/details. Labs Incl: (10/20) glucose 189, BUN 20, Creat 1.1, Na+ 143, K+ 3.7, mag 1.8, Ca+ 8.7, total pro 7.3, albumin 3.1, HCT 39.5, HGB 13.1, MCV 88, MCH 29 Skin: Noel Score 21, No open areas noted. Accuchecks: 163-230 A: Pt able to make food preferences known. Cardiac and consistent carb diet in place 2/2 dx/hx of CHF and diabetes. BMI; morbid obesity class. may see wts fluctuate with diuretic tx. Rev'd meds and labs. No open areas noted. Rec continue current diet as appears appropriate and tolerated at this time. RD avail for further consult if desired. P: 1. continue same
[2016-10-20 11:16] VITALS: BP 145/67
[2016-10-20] MEDS ORDERED: AMOXICILLIN250 MG PO (13:45)
[2016-10-20] MEDS ORDERED: FUROSEMIDE10 MG/ML PO (13:46)
[2016-10-20] MEDS ORDERED: [UNRECOGNIZED DRUG - OTHER] TOP (13:47)
--- NOTE | 2016-10-20 13:51 | Provider's Discharge Care Plan ---
Problem, Goal, Plan Problem List 1. Acute exacerbation of CHF (congestive heart failure) Instructions: resolved, patient was weaned off of bipap and diuresed 2. Hypoxia Instructions: Follow up as needed (resolved), keep up with fluid restrictions 3. Diabetes mellitus 4. Otitis media Instructions: - c/w amoxicillin as prescribed, take lidocaine drops as prescribed. Follow up with pmd
--- NOTE | 2016-10-20 14:40 | NUR ---
DISCHARGE INSTRUCTIONS REVIEWED WITH PT AND HER S.O., QUESTIONS ANSWERED. RXs GIVEN TO PT AND PT DISCHARGED HOME WITH S.O.
--- NOTE | 2016-10-22 18:34 | ED MED RECONCILIATION SUMMARY ---
Patient: CORI SU Medication Reconciliation Report [facility] VisitID: [id number] [address] [place] [address] 46y, F Registration Date/Time: 10/19/2016 Weight: 167.8 kg Height/Length: 65 in. BMI: 61.6 ALLERGIES: Benadryl, Demerol, Morphine Sulfate The patient's Home Medications are listed below: THE FOLLOWING MEDICATIONS NEED TO BE RECONCILED: Lasix Oral Lisinopril Oral MetFORMIN HCl Oral 500 mg, 3x a day Metoprolol Tartrate Oral [place] Oral The source(s) of the original Home Medication information: Not obtained. The following Medications were given to the patient in the Emergency Department: Hydrocodone-APAP [PO] PO 1 tab, administered: 10/19/2016 4:00:00 AM Lasix [IVP] IVP 40 mg, administered: 10/19/2016 7:06:00 AM Motrin [PO] PO 600 mg, administered: 10/19/2016 9:02:00 AM The following Medications were prescribed to the patient: None.
--- NOTE | 2016-10-22 18:34 | ED DISCHARGE INSTRUCTIONS ---
Patient: CORI SU General Instructions [facility] VisitID: [id number] [address] [place] [address] 46y, F Registration Date/Time: 10/19/2016 CHF acute exacerbation acute hypoxia acute respiratory failure. (Electronically signed by Joel Bianchi Dr. 10/22/2016 18:34)
--- NOTE | 2016-10-22 18:34 | ED MED RECONCILIATION SUMMARY ---
Patient: CORI SU Medication Reconciliation Report [facility] VisitID: [id number] [address] [place] [address] 46y, F Registration Date/Time: 10/19/2016 Weight: 167.8 kg Height/Length: 65 in. BMI: 61.6 ALLERGIES: Benadryl, Demerol, Morphine Sulfate The patient's Home Medications are listed below: THE FOLLOWING MEDICATIONS NEED TO BE RECONCILED: Lasix Oral Lisinopril Oral MetFORMIN HCl Oral 500 mg, 3x a day Metoprolol Tartrate Oral [place] Oral The source(s) of the original Home Medication information: Not obtained. The following Medications were given to the patient in the Emergency Department: Hydrocodone-APAP [PO] PO 1 tab, administered: 10/19/2016 4:00:00 AM Lasix [IVP] IVP 40 mg, administered: 10/19/2016 7:06:00 AM Motrin [PO] PO 600 mg, administered: 10/19/2016 9:02:00 AM The following Medications were prescribed to the patient: None.
--- NOTE | 2016-10-22 18:34 | ED DISCHARGE INSTRUCTIONS ---
Patient: CORI SU General Instructions [facility] VisitID: [id number] [address] [place] [address] 46y, F Registration Date/Time: 10/19/2016 CHF acute exacerbation acute hypoxia acute respiratory failure. (Electronically signed by Joel Bianchi Dr. 10/22/2016 18:34)
--- NOTE | 2016-10-22 18:34 | ED MAR SUMMARY ---
..... Medication Administration Record [facility] [address] [place] [address] Patient: CORI SU Visit ID: [id number] 46y, F Weight: 167.8 kg Height/Length: 65 in BMI: 61.6 ALLERGIES: Benadryl, Demerol, Morphine Sulfate Given 04:00 10/19/2016 Fabiano Mansfield RCarlosNCarlos Medication Administered: HYDROCODONE-APAP [PO] (HYDROCODONE-ACETAMINOPHEN), Dose: 1 tab 5/325 mg Tablets PO. Medication Ordered: 1. IV Saline Lock. 2. Hydrocodone-APAP PO 5/325 mg (NOW, HIGH ALERT MEDICATION). Given 07:06 10/19/2016 Jessi Goldman RAmairani Medication Administered: LASIX [IVP], Dose: 40 mg IVP over 2 minute(s), Site: #1 left forearm. Medication Ordered: Lasix IV 40 mg (NOW). Given 09:02 10/19/2016 Chris Girffin R.N. Medication Administered: MOTRIN [PO], Dose: 600 mg Tablets PO. Medication Ordered: Motrin PO 600 mg (NOW).
--- NOTE | 2016-10-22 18:34 | ED MAR SUMMARY ---
..... Medication Administration Record [facility] [address] [place] [address] Patient: CORI SU Visit ID: [id number] 46y, F Weight: 167.8 kg Height/Length: 65 in BMI: 61.6 ALLERGIES: Benadryl, Demerol, Morphine Sulfate Given 04:00 10/19/2016 Fabiano Mansfield RCarlosNCarlos Medication Administered: HYDROCODONE-APAP [PO] (HYDROCODONE-ACETAMINOPHEN), Dose: 1 tab 5/325 mg Tablets PO. Medication Ordered: 1. IV Saline Lock. 2. Hydrocodone-APAP PO 5/325 mg (NOW, HIGH ALERT MEDICATION). Given 07:06 10/19/2016 Jessi Goldman RAmairani Medication Administered: LASIX [IVP], Dose: 40 mg IVP over 2 minute(s), Site: #1 left forearm. Medication Ordered: Lasix IV 40 mg (NOW). Given 09:02 10/19/2016 Chris Griffin R.N. Medication Administered: MOTRIN [PO], Dose: 600 mg Tablets PO. Medication Ordered: Motrin PO 600 mg (NOW).
--- NOTE | 2016-10-30 10:07 | Progress Note ---
Subjective General pt is doing well, no complaints overnight. Ear pain is diminishing Constitutional Denies: Fever, Chills, Sweats, Weakness, Malaise, Other. Eyes Denies: Pain, Vision Change, Conjunctival Inflammation, Eyelid Inflammation, Redness, Other. ENT Ear Pain. Denies: Ear Discharge, Nose Pain, Nasal Discharge, Nasal Congestion, Mouth Pain, Mouth Swelling, Throat Pain, Throat Swelling, Other. Respiratory Denies: Cough, Dry, SOB w/exertion, Wheezing, Hemoptysis, Pleuritic Pain, Sputum , Other. Cardiovascular Denies: Chest Pain, Palpitations, Orthopnea, PND, Edema, Light-headedness, Other. Gastrointestinal Denies: Nausea, Vomiting, Abdominal Pain, Diarrhea, Constipation, Melena, Hematochezia, Other. Neurological Denies: Weakness, Numbness, Incoordination, Change in speech, Confusion, Seizures, Other. Physical Exam General Appearance Alert, Oriented X3, No acute distress HEENT Atraumatic, PERRLA, - tympanic membrane has slight erythema Lungs Clear to auscultation, Normal air movement Cardiovascular Regular rate and rhythm, Normal S1 and S2 Abdomen Soft, No tenderness, No guarding Skin No Breakdown Neurological Normal gait, Normal speech Psych/Mental Status Mood normal Assessment and Plan Problem List 1. Hypoxia Plan - resolved - most likely secondary to anxiety and bronchospasm - no need for accessory oxygen - echo is grossly normal 2. Hypertension Plan - established - chronic - c/w home medications 3. Diabetes mellitus Plan - chronic - c/w home meds and regularly scheduled glucose checks 4. Otitis media Plan - c/w antibiotics - will dc pt with home regimen - will provide with lidocaine drops on dc
== END 2016-10-20 14:40 | disposition home or self-care (01) ==
LOC: ED SRH 03:06 → CC SRH 08:31 → TRANS SRH 08:31 → CC SRH 09:43
PROVIDERS: ADMIT Student in an Organized Health Care Education/Training Program
DX: J96.01 Acute respiratory failure with hypoxia (principal); I11.0 Hypertensive heart disease with heart failure; I50.9 Heart failure, unspecified; E11.9 Type 2 diabetes mellitus without complications; Z79.84 Long term (current) use of oral hypoglycemic drugs; E66.01 Morbid (severe) obesity due to excess calories; Z68.44 Body mass index [BMI] 60.0-69.9, adult; Z59.0 Homelessness
CPT/HCPCS: 29251; 29259; 29264; 90004; 90074; 90098; 90100; 90616; 91320; 91672; 92132; 92720; 94001; 94060; 95059